=== PATIENT | female | born 1980 | race Caucasian/White ===

== ENCOUNTER 2017-04-09 19:42 | Emergency (ER) | payer MEDICAID ==
[~2017-04-09] VITALS: Ht 157.5 cm; Wt 79.5 kg
[2017-04-09] MEDS ORDERED: SODIUM CHLORIDE FLUSH 10ML SYR IVF ONE (20:30)
[2017-04-09] MEDS ORDERED: HYDROmorphone 1 MG/ML, 1ML IVPush PRN (20:30)
[2017-04-09] MEDS ORDERED: OMNIPAQUE 350 MG/ML, 100ML BOTTLE ONE (20:30)
[2017-04-09] MEDS ORDERED: ONDANSETRON 2MG/ML, 2ML IVPush ONE (20:30)
[2017-04-09] MEDS ORDERED: LORA-446 PO (20:30)
[2017-04-09] MEDS ORDERED: ONDANSETRON 2MG/ML, 2ML ONE (20:52)
[2017-04-09] MEDS ORDERED: HYDROmorphone 1 MG/ML, 1ML ONE (20:52)
[2017-04-09 21:39] LABS: ASPARTATE AMINO TRANSFERASE 10 U/L (15-37); BLOOD UREA NITROGEN 13 mg/dL (7-18)
[2017-04-09 22:31] VITALS: BP 129/86
[2017-04-09] MEDS ORDERED: METOCLOPRAMIDE 5 MG/ML, 2ML ONE (22:47)
[2017-04-09] MEDS ORDERED: METOCLOPRAMIDE 5 MG/ML, 2ML IVPush ONE (23:00)
== END 2017-04-09 23:13 | disposition home or self-care (01) ==
LOC: ED 21:34
DX: K31.84 Gastroparesis (principal); R10.12 Left upper quadrant pain; Z90.49 Acquired absence of other specified parts of digestive tract
CPT/HCPCS: 36415; 74177; 80053; 81003; 83690; 84703; 85025; 96374; 96375; 99285; J1170; J2405; J2765; Q9967

== ENCOUNTER 2017-07-10 14:59 | Emergency (ER) | payer MEDICAID ==
[~2017-07-10] VITALS: Ht 167.6 cm; Wt 76.1 kg
[~2017-07-10 14:59] MED LIST: LORA-446 PO
[2017-07-10 16:38] VITALS: BP 147/94
== END 2017-07-10 18:40 | disposition left against medical advice (07) ==
LOC: ED 16:34
DX: Z53.21 Procedure and treatment not carried out due to patient leaving prior to being seen by health care provider (principal)

== ENCOUNTER 2017-07-10 16:40 | Emergency (ER) | payer MEDICAID ==
[~2017-07-10] VITALS: Ht 175.3 cm; Wt 76.1 kg
[2017-07-10 17:56] VITALS: BP 129/95
== END 2017-07-10 18:00 ==
LOC: ED 17:54
DX: F41.1 Generalized anxiety disorder (principal)
CPT/HCPCS: 99284